=== PATIENT | female | born 1955 | race Caucasian/White ===

== ENCOUNTER → 2024-01-27 | Outpatient (CLI) | payer OTHER ==
[~2024-01-27] MED LIST: AMLODIPINE BESY10 MG PO; CARVEDILOL6.25 MG PO; PAXIL2010 PO
[2024-01-27 11:25] LABS: Source, Urine Clean Catch
[2024-01-27 11:29] LABS: Appearance, Urine Hazy (Clear); Bilirubin, Urine Neg (Neg); Blood, Urine 1+ (Neg); Color, Urine Yellow (P-Yellow); Glucose Qualitative, Urine Neg (Neg); Ketones, Urine Neg (Neg); Leukocyte Esterase, Urine 3+ (Neg); Nitrite, Urine Neg (Neg); Protein, Urine 1+ (Neg); Specific Gravity, Urine 1.025 (1.003-1.022); Urobilinogen, Urine NORM (Normal)
[2024-01-27 11:45] LABS: Squamous Epithelial Cells Many /hpf (Few); Transitional Epithelial Cells Many /hpf (0-Rare)
[2024-01-27 11:46] LABS: Amorphous Light (0-Heavy); Bacteria Mod /hpf; Mucus Mod (0-Heavy); Red Blood Cells, Urine 0-2 /hpf (0-2)
[2024-01-27 12:16] LABS: Protein, Urine Random 27.3 mg/dL (0.0-11.9)
[2024-01-27 12:21] LABS: Protein/Creat Ratio, Ur Random 0.1
== END | disposition home or self-care (01) ==
LOC: LAB SHORT 09:15 → LAB 09:15
PROVIDERS: Hospitalist
DX: N18.32 Chronic kidney disease, stage 3b (principal)
CPT/HCPCS: 81001; 82570; 84156; 87086